=== PATIENT | female | born 1980 | race Caucasian/White ===

== ENCOUNTER 2018-10-28 03:55 | Emergency (ER) | payer BC, OTHER ==
[2018-10-28] MEDS ORDERED: Ondansetron 4 MG Tab.DIS PO ONE (04:43)
--- NOTE | 2018-10-28 06:04 | EDM.PDOC ---
ED HPI GENERAL MEDICAL PROBLEM - General Chief Complaint: Gastrointestinal Problem Stated Complaint: VOMMITING Time Seen by Provider: 10/28/18 04:15 Source of Information: Reports: Patient History Limitations: Reports: No Limitations - History of Present Illness INITIAL COMMENTS - FREE TEXT/NARRATIVE: patient presents with concern for acute onset abdominal pain, vomiting, diarrhea , mild shortness of breath (because of vomiting so much), cramping abdominal pain and low back pain that started around 6 pm yesterday evening. She reports she was feeling fine then went out to eat with her , and after getting home they cooked some walleye. He does not feel sick. She has not tried anything for the pain. She is uncertain regarding fever. She states she has never hurt like this before except for after her hysterectomy. no blood in her diarrhea or vomit. Bilateral Lower Abdomen Pain Score (Numeric/FACES): 8 - Related Data Allergies Allergy/AdvReac Type Severity Reaction Status Date / Time amoxicillin [From Augmentin] Allergy Tachycardia Verified 10/28/18 04:06 clavulanic acid Allergy Tachycardia Verified 10/28/18 04:06 [From Augmentin] codeine Allergy Tachycardia Verified 10/28/18 04:06 Home Meds: Home Meds Cetirizine [ZyrTEC] 10/28/18 [History] FLUoxetine [PROzac] 10/28/18 [History] Gabapentin [Neurontin] 10/28/18 [History] LORazepam 10/28/18 [History] Ondansetron HCl [Zofran] 4 mg PO Q6H PRN #24 tablet 10/28/18 [Rx] Past Medical History Musculoskeletal History: Reports: Other (See Below) Other Musculoskeletal History: neck fusion C 5,6 Psychiatric History: Reports: Anxiety, Depression - Past Surgical History Female Surgical History: Reports: Hysterectomy Social & Family History - Family History Family Medical History: Noncontributory - Tobacco Use Smoking Status *Q: Never Smoker - Caffeine Use Caffeine Use: Reports: None - Alcohol Use Alcohol Use Comment: rare social - Recreational Drug Use Recreational Drug Use: No ED ROS GENERAL - Review of Systems Review Of Systems: ROS reveals no pertinent complaints other than HPI. ED EXAM, GENERAL - Physical Exam Exam: See Below Free Text/Narrative:: General: alert, uncomfortable on bed. Throat without erythema, mucus membranes moist, no cervical lymphadenopathy. Heart regular rate/rhythm, lungs clear throughout, abdomen hyperactive bowel sounds, soft, diffusely tender with no rebound or guarding. Negative hernandes's and McBurney's point. Extremities: moving normally, no edema, +2 peripheral pulses Course - Vital Signs Text/Narrative:: patient seen and evaluated, most likely viral gastroenteritis or acute food poisoning given onset, unlikely to be bowel obstruction with diarrhea, minimally tender and exam does not suggestion pancreatitis, no urinary symptoms , no abnormal vaginal discharge. Discussed trying zofran, labs vs watchful waiting, will get labs. Last Recorded V/S: Last Vital Signs Temp 36.4 C 10/28/18 03:55 Pulse 91 10/28/18 03:55 Resp 18 10/28/18 03:55 BP 93/71 10/28/18 03:55 Pulse Ox 100 10/28/18 03:55 - Orders/Labs/Meds Labs: Laboratory Tests 10/28/18 10/28/18 10/28/18 Range/Units 04:17 05:12 05:12 WBC 17.7 H (4.5-12.0) X10-3/uL RBC 4.86 (3.23-5.20) x10(6)uL Hgb 15.3 (11.5-15.5) g/dL Hct 44.0 (30.0-51.3) % MCV 90.5 (80-96) fL MCH 31.5 (27.7-33.6) pg MCHC 34.8 (32.2-35.4) g/dL RDW 11.9 (11.5-15.5) % Plt Count 253 (125-369) X10(3)uL MPV 10.1 (7.4-10.4) fL Add Manual Diff Yes Neutrophils % (Manual) 78 (46-82) % Band Neutrophils % 1 (0-6) % Lymphocytes % (Manual) 14 (13-37) % Monocytes % (Manual) 5 (4-12) % Eosinophils % (Manual) 2 (0-5) % Sodium 142 (135-145) mmol/L Potassium 3.8 (3.5-5.3) mmol/L Chloride 105 (100-110) mmol/L Carbon Dioxide 20 L (21-32) mmol/L BUN 23 H (7-18) mg/dL Creatinine 1.0 (0.55-1.02) mg/dL Est Cr Clr Drug Dosing 56.43 mL/min Estimated GFR (MDRD) > 60 (>60) BUN/Creatinine Ratio 23.0 H (9-20) Glucose 108 (80-116) mg/dL Calcium 9.4 (8.6-10.2) mg/dL Total Bilirubin 0.8 (0.1-1.3) mg/dL AST 17 (5-25) IU/L ALT 37 H (12-36) U/L Alkaline Phosphatase 104 (56-112) IU/L Total Protein 7.6 (6.0-8.0) g/dL Albumin 4.3 (3.5-5.2) g/dL Globulin 3.3 g/dL Albumin/Globulin Ratio 1.3 Urine Color Yellow (YELLOW) Urine Appearance Slightly cloudy (CLEAR) Urine pH 7.0 H (5.0-6.5) Ur Specific [place] 1.015 (1.010-1.025) Urine Protein Negative (NEGATIVE) mg/dL Urine Glucose (UA) Normal (NORMAL) mg/dL Urine Ketones 50 H (NEGATIVE) mg/dL Urine Occult Blood Negative (NEGATIVE) Urine Nitrite Negative (NEGATIVE) Urine Bilirubin Negative (NEGATIVE) Urine Urobilinogen Normal (NEGATIVE) mg/dL Ur Leukocyte Esterase Negative (NEGATIVE) Urine RBC 0-5 (0-5) Urine WBC 0-5 (0-5) Ur Squamous Epith Cells Moderate H (NS,R,O) Urine Bacteria Few H (NS) Urine Mucus Few H (NS) Meds: Medications Discontinued Medications Generic Name Dose Route Start Last Admin Trade Name Silverioq PRN Reason Stop Dose Admin Ondansetron HCl 4 mg 10/28/18 04:43 10/28/18 04:57 Zofran Odt PO 10/28/18 04:44 4 mg ONETIME ONE Administration - Re-Assessments/Exams Free Text/Narrative Re-Assessment/Exam: 10/28/18 06:07 labs returned, elevated WBCs, CMP no acute abnormalities. patient feeling much better after zofran, has had some ice chips, repeat abdominal exam still benign. Will discharge to home with zofran, discussed warning signs which would prompt need for further re-evaluation. They are in agreement with this plan and have no further questions. Departure - Departure Time of Disposition: 06:08 Disposition: Home, Self-Care 01 Clinical Impression: Viral gastroenteritis - Discharge Information *PRESCRIPTION DRUG MONITORING PROGRAM REVIEWED*: Not Applicable *COPY OF PRESCRIPTION DRUG MONITORING REPORT IN PATIENT [place]: Not Applicable Prescriptions: Ondansetron HCl [Zofran] 4 mg PO Q6H PRN #24 tablet PRN Reason: Vomiting Referrals: Guanaco Davidson MD [Primary Care Provider] - Additional Instructions: if worsening symptoms, severe pain, vomiting ongoing blood, or diarrhea with copious blood, or fever 101 or higher that is not transient accompanied by pain , return to ER or call physician. recommend BRAT diet - bananas, apples, rice, toast; can also try sprite or jihan quinn, or powerade or something similar. Water is fine as well
== END 2018-10-28 06:27 | disposition home or self-care (01) ==
LOC: FB.ED 03:55
DX: A08.4 Viral intestinal infection, unspecified (principal); F41.9 Anxiety disorder, unspecified; F32.9 Major depressive disorder, single episode, unspecified; Z79.899 Other long term (current) drug therapy; Z88.1 Allergy status to other antibiotic agents; Z88.5 Allergy status to narcotic agent
CPT/HCPCS: 36415; 80053; 81001; 85025; 99284; A9270

== ENCOUNTER 2023-03-25 04:32 | Emergency (ER) | payer BC ==
[2023-03-25] MEDS ORDERED: Acetaminophen/oxyCODONE 325-5 MG Tab PO ONE (04:33)
[2023-03-25] MEDS ORDERED: Ondansetron 4 MG Tab.DIS PO ONE ×2 (04:33→05:15)
[2023-03-25] MEDS ORDERED: Ketorolac 30 MG/ML SDV IM ONE (04:39)
[2023-03-25] MEDS ORDERED: Morphine 4 MG/ML VIAL IM ONE (04:40)
[2023-03-25] MEDS ORDERED: Naloxone 0.4 MG/ML SDV IVPUSH PRN (04:40)
[2023-03-25] MEDS ORDERED: Ketorolac 30 MG/ML SDV ONE (04:43)
[2023-03-25 05:38] LABS: BASOPHILS ABSOLUTE AUTO 0.1 x10-3/uL (0.0-0.1); BASOPHILS PERCENT AUTO 0.5 % (0.2-1.5); EOSINOPHILS ABSOLUTE AUTO 0.5 x10-3/uL (0.0-0.8); EOSINOPHILS PERCENT AUTO 3.5 % (0.6-8.1); HEMATOCRIT 38.3 % (34.2-48.2); LYMPHOCYTES ABSOLUTE AUTO 2.1 x10-3/uL (1.0-4.4); LYMPHOCYTES PERCENT AUTO 15.3 % (18.4-52.1); MEAN CORPUSCULAR HGB CONC 33.8 g/dL (31.9-34.8); MEAN CORPUSCULAR VOLUME 88.8 fL (76.7-100.5); MEAN PLATELET VOLUME 8.9 fL (7.1-12.4); MONOCYTES PERCENT AUTO 7.1 % (4.4-15.7); NEUTROPHILS PERCENT AUTO 73.6 % (30.8-76.2); PLATELET COUNT,PLT 284 x10(3)uL (151-488); RED BLOOD CELL COUNT 4.32 x10(6)uL (3.60-5.20); RED CELL DISTRIBUTION WIDTH 12.8 % (12.3-16.5); WHITE BLOOD CELL COUNT,WBC 13.6 x10-3/uL (3.0-10.3)
[2023-03-25 05:40] LABS: BLOOD UREA NITROGEN,BUN 15 mg/dL (7-18); CALCIUM 8.9 mg/dL (8.6-10.2); CARBON DIOXIDE,CO2 23 mmol/L (21-32); CHLORIDE,CL 105 mmol/L (100-110); ESTIMATED GFR 71 mL/min (>60); GLUCOSE RANDOM 107 mg/dL (80-116); POTASSIUM,K 4.1 mmol/L (3.5-5.3); SODIUM,NA 137 mmol/L (135-145)
[2023-03-25 05:43] LABS: BILIRUBIN,URINE NEGATIVE (NEGATIVE); GLUCOSE,URINE NORMAL (NORMAL); KETONES,URINE NEGATIVE (NEGATIVE); LEUKOCYTE ESTERASE,URINE NEGATIVE (NEGATIVE); NITRITE,URINE NEGATIVE (NEGATIVE); OCCULT BLOOD,URINE NEGATIVE (NEGATIVE); PROTEIN,URINE NEGATIVE (NEGATIVE); UROBILINOGEN,URINE NORMAL (NEGATIVE)
[2023-03-25 05:47] LABS: ALANINE AMINOTRANSFERASE,ALT 30 U/L (12-36); ALBUMIN 3.5 g/dL (3.5-5.2); ALKALINE PHOSPHATASE 98 IU/L (56-112); AMYLASE 52 U/L (25-115); ASPARTATE AMNIOTRANSFERASE,AST 20 IU/L (5-25); BILIRUBIN TOTAL 0.5 mg/dL (0.1-1.3)
[2023-03-25 06:08] LABS: APPEARANCE,URINE CLOUDY (CLEAR); BACTERIA,URINE MODERATE (NS); COLOR,URINE YELLOW (YELLOW); RBC,URINE 0-5 (0-5); SQUAMOUS EPITHELIAL CELLS,UR MODERATE (NS,R,O); WBC,URINE 0-5 (0-5)
[2023-03-25] MEDS ORDERED: Sodium Chloride 0.9% 10 ML Syringe FLUSH PRN (06:19)
[2023-03-25] MEDS ORDERED: Sodium Chloride 0.9% 1,000 ML IV SCH (06:30)
== END 2023-03-25 06:49 | disposition home or self-care (01) ==
LOC: FB.ED 04:32
DX: R10.11 Right upper quadrant pain (principal); Z88.0 Allergy status to penicillin; Z88.5 Allergy status to narcotic agent; Z88.1 Allergy status to other antibiotic agents
CPT/HCPCS: 36415; 80053; 81001; 82150; 83690; 85025; 96372; 99284; A9270-GY; J1885; J2270; Q0162